=== PATIENT | female | born 1970 | race Caucasian/White ===

== ENCOUNTER → 2016-10-05 | Outpatient (CLI) | payer OTHER ==
[~2016-10-05] MED LIST: ADVIL DPS200 MG PO; COZAAR100 MG PO; INDERAL-DPS80 MG PO; LASIX DPS80 MG PO; MELATONIN10 MG PO; NORCO 5-325 TA1 EACH PO; PRILOSEC DPS20 MG PO; TIKOSYN500 MCG PO; XARELTO20 MG PO
== END | disposition home or self-care (01) ==
LOC: PTH.S 07:25
DX: Z00.00 Encounter for general adult medical examination without abnormal findings (principal); R60.0 Localized edema; E55.9 Vitamin D deficiency, unspecified; I49.9 Cardiac arrhythmia, unspecified

== ENCOUNTER → 2016-10-05 | Outpatient (CLI) | payer OTHER ==
--- NOTE | ~2016-10-05 | ECH ---
Transthoracic Echocardiography Report (TTE) Demographics Patient Name JOYCE LYNN Date of Study 10/05/2016 Patient Number [id number] Visit Number [id number] Date of 1970 Room Number Accession Number [id number] Gender Female Age 46 year(s) Referring Reginald Amezcua Payroll Tax Specialist Meenu Rodriguez Physician LUIS Physician Interpreting Samantha MATUTE Teacher Of The Deaf/Hard Of Hearing Physician Tobi Supervising Ordering Physician Reginald Amezcua MD/MLP Nurse Stress Zinc Miner Conclusions Contractility Score Summary Normal Left Ventricular contractility was noted. Summary Technically fair exam. The estimated left ventricular ejection fraction is 60-65%. The left atrium is mildly dilated by LA volume index measurement. The right atrium is moderately dilated. No significant valvular abnormalities. Recommendation The patient will be given the results of this study by the physician who ordered the exam. Procedure Type of Study TTE procedure:Echo Complete SF. Procedure Date Date: 10/05/2016 Start: 09:18 AM Technical Quality: Fair due to body habitus. Indications:Dyspnea with exertion, Hypertension and Bilateral lower extremity edema. Appropriate Use Criteria: 9 Height: 81 inches Weight: 320 pounds BSA: 2.83 m Rhythm: Atrial fibrillation HR: 89 bpm BP: 147/80 mmHg M-Mode/2D Measurements LV Diastolic Dimension: 5.1 cm LV Systolic Dimension: 3.46 cm LV Septum Diastolic: 0.91 cm LV PW Diastolic: 0.84 cm AO Root Dimension: 2.79 cm Cardiac Output: 8.03 l/min LA Dimension: 4.23 cm Cardiac Index: 2.84 l/min*m RV Diastolic Dimension: 3.86 cm LA volume index: 40 ml/m LVOT: 1.99 cm LVOT VTI: 29.01 cm RV Base: 3.9 cm LV Stroke volume: 90.18 ml RV Mid: 2.3 cm LV Stroke volume index: 31.87 ml/m TAPSE: 2.7 cm TDI-S': 13 cm/s Doppler Measurements AV Peak Velocity: 1.5 m/s MV Peak E-Wave: 1.39 m/s AV Peak Gradient: 9 mmHg AV Mean Gradient: 4.75 mmHg MV P1/2t: 71.2 msec LVOT Peak Velocity: 1.48 m/s AV Area (Continuity):3.03 cm MV Area (PHT): 3.09 cm TR Velocity:2.73 m/s PV Peak Velocity: 1.15 m/s TR Gradient:29.81 mmHg PV Peak Gradient: 5.31 mmHg Estimated RAP:3 mmHg Estimated PASP: 32.81 mmHg Estimated RVSP: 33 mmHg E' Septal Velocity: 0.14 m/s E' Lateral Velocity: 0.12 m/s RA Area: 27.06 cm Findings Left Ventricle Normal left ventricle size and function. Diastolic function indeterminate due to patient's arrhythmia. Right Ventricle Normal right ventricle structure and function. Left Atrium The left atrium is mildly dilated by LA volume index measurement. Right Atrium The right atrium is moderately dilated. Mitral Valve Normal mitral valve structure and function. Mild mitral regurgitation by color Doppler. Aortic Valve The aortic valve was not well imaged. Tricuspid Valve Normal tricuspid valve structure and function. Mild tricuspid regurgitation by color Doppler. Normal pulmonary pressures. Pulmonic Valve The pulmonic valve is not well visualized. Trivial pulmonic valve regurgitation by color Doppler. Pericardial Effusion No evidence of pericardial effusion. Miscellaneous Visualized portions of the aortic root and ascending aorta appear normal in size. Pleural Effusion No evidence of pleural effusion. Contractility Score LV regional wall motion:(0-Non visualized 1-Normal 2-Hypokinesis 3-Akinesis 4-Dyskinesis 5-Aneurysm) Signature
== END | disposition home or self-care (01) ==
LOC: CARD 08:58
DX: R06.02 Shortness of breath (principal); I10 Essential (primary) hypertension; R60.0 Localized edema; I51.7 Cardiomegaly